=== PATIENT | female | born 1955 | race Two or more races ===

== ENCOUNTER 2023-03-24 06:31 | Day surgery (SDC) | payer OTHER | END 2023-03-24 12:20 | disposition home or self-care (01) | LOC: AMB-ENDOS 06:31 | PROVIDERS: ATTEND Surgery | DX: R19.5 Other fecal abnormalities (principal); K52.89 Other specified noninfective gastroenteritis and colitis; K57.30 Diverticulosis of large intestine without perforation or abscess without bleeding; K63.5 Polyp of colon; R19.4 Change in bowel habit; K66.0 Peritoneal adhesions (postprocedural) (postinfection); Z20.822 Contact with and (suspected) exposure to COVID-19 ==